=== PATIENT | male | born 1980 | race Caucasian/White ===

== ENCOUNTER 2018-09-19 12:22 | Emergency (ER) | payer MEDICAID ==
[~2018-09-19] VITALS: Ht 175.3 cm; Wt 88.6 kg
[~2018-09-19 12:22] MED LIST: CIPR7.5D2 LEFT EAR; HYDR-4383 PO; MECL-111 PO
[2018-09-19] MEDS ORDERED: PENI500T2 PO (14:33)
[2018-09-19] MEDS ORDERED: IBUP-1984 PO (14:33)
[2018-09-19 14:42] VITALS: BP 113/80
== END 2018-09-19 14:44 | disposition home or self-care (01) ==
LOC: ER 12:23
DX: K02.9 Dental caries, unspecified (principal); F12.90 Cannabis use, unspecified, uncomplicated; Z79.2 Long term (current) use of antibiotics
CPT/HCPCS: 99284

== ENCOUNTER 2021-11-23 13:18 | Emergency (ER) | payer MEDICAID ==
[~2021-11-23] VITALS: Ht 175.3 cm; Wt 90.9 kg
[~2021-11-23 13:18] MED LIST changes: -MECL-111 PO; +MECL-159 PO
[2021-11-23 13:53] VITALS: BP 146/85
[2021-11-23 14:20] LABS: CLARITY,URINE CLEAR (Clear); GLUCOSE, URINE NEGATIVE (Neg); KETONES,URINE NEGATIVE (Neg); LEUKOCYTE ESTERASE ,URINE NEGATIVE (Neg); NITRITES, URINE NEGATIVE (Neg); OCCULT BLOOD,URINE NEGATIVE (Neg); PH,URINE 5.5 (4.8-8.0); PROTEIN,URINE NEGATIVE (Neg); UROBILINOGEN,URINE 0.2 E.U/dL (0.2-1.0)
[2021-11-23 14:23] LABS: COLOR,URINE STRAW (Yellow); UA COLLECTION TYPE CLN CATCH MIDSTREAM
[2021-11-23 15:07] LABS: BASOPHILS % (AUTO) 0.5 % (0-1); EOSINOPHILS # (AUTO) 0.1 X10'3 (0-0.9); EOSINOPHILS % (AUTO) 1.3 % (0-6); HEMOGLOBIN 15.6 g/dl (14.0-17.9); LYMPHOCYTES # (AUTO) 2.1 X10'3 (1.1-4.8); LYMPHOCYTES % (AUTO) 27.9 % (21-51); MEAN CORPUSCULAR HEMOGLOBIN 30.8 PG (27.0-31.0); MEAN CORPUSCULAR HGB CONC 33.8 g/dL (33.0-36.5); MEAN PLATELET VOLUME 8.2 FL (7.4-10.4); MONOCYTES # (AUTO) 0.6 X10'3 (0-0.9); MONOCYTES % (AUTO) 7.6 % (2-12); NEUTROPHILS # (AUTO) 4.7 X10'3 (1.8-7.7); NEUTROPHILS % (AUTO) 62.7 % (42-75); PLATELET COUNT 232 X10'3 (140-440); RED BLOOD COUNT 5.05 X10'6 (4.70-6.10); RED CELL DISTRIBUTION WIDTH 13.4 % (11.5-14.5); WHITE BLOOD COUNT 7.5 X10'3 (4.5-11.0)
[2021-11-23 15:21] LABS: ALANINE AMINOTRANSFERASE 27 U/L (12-78); ALBUMIN 4.4 G/DL (3.4-5.0); ALBUMIN/GLOBULIN RATIO 1.3 (1.1-1.5); ALKALINE PHOSPHATASE 81 IU/L (46-116); ANION GAP 9 (8-16); ASPARTATE AMINO TRANSFERASE 19 U/L (10-37); BILIRUBIN,TOTAL 0.8 MG/DL (0.1-1.0); BLOOD UREA NITROGEN 8 MG/DL (7-18); CALCIUM 8.7 MG/DL (8.5-10.1); CHLORIDE 102 MMOL/L (99-107); GLUCOSE 87 MG/DL (70-104); SODIUM 137 MMOL/L (135-145); TOTAL CARBON DIOXIDE 26.5 MMOL/L (24-32); TOTAL PROTEIN 7.9 G/DL (6.4-8.2)
[2021-11-23 15:30] LABS: BUN/CREATININE RATIO 8.2 (5.4-32.0); CREATININE 0.97 MG/DL (0.60-1.10); eGFR 84 ML/MIN
== END 2021-11-23 15:53 | disposition home or self-care (01) ==
LOC: ER 13:19
DX: E86.0 Dehydration (principal); R10.9 Unspecified abdominal pain; F12.10 Cannabis abuse, uncomplicated; Z79.899 Other long term (current) drug therapy; Z79.82 Long term (current) use of aspirin
CPT/HCPCS: 36415; 80053; 81003; 85025; 99283

== ENCOUNTER 2024-05-30 16:22 | Emergency (ER) | payer MEDICAID ==
[~2024-05-30] VITALS: Ht 175.3 cm; Wt 103.1 kg
[~2024-05-30 16:22] MED LIST changes: -MECL-159 PO; +MECL-302 PO
[2024-05-30 16:44] VITALS: BP 157/83; PULSE 64; RESP 18; O2SAT 98
[2024-05-30 18:58] LABS: BILIRUBIN,URINE NEGATIVE (Neg); CLARITY,URINE CLEAR (Clear); COLOR,URINE YELLOW (Yellow); GLUCOSE, URINE NEGATIVE (Neg); KETONES,URINE NEGATIVE (Neg); LEUKOCYTE ESTERASE ,URINE NEGATIVE (Neg); NITRITES, URINE NEGATIVE (Neg); OCCULT BLOOD,URINE NEGATIVE (Neg); PH,URINE 6.5 (4.8-8.0); PROTEIN,URINE NEGATIVE (Neg); UROBILINOGEN,URINE 0.2 E.U/dL (0.2-1.0)
[2024-05-30 19:04] LABS: UA COLLECTION TYPE NON-SPECIFIED
[2024-05-30] MEDS ORDERED: MELO-102 PO (19:31)
[2024-05-30] MEDS ORDERED: METH-798 PO (19:31)
[2024-05-30 19:45] VITALS: TEMP 98.2
== END 2024-05-30 19:46 | disposition home or self-care (01) ==
LOC: ER 16:22
DX: R07.81 Pleurodynia (principal); R10.9 Unspecified abdominal pain; F12.90 Cannabis use, unspecified, uncomplicated
CPT/HCPCS: 81003; 99283